=== PATIENT | female | born 1970 | race American Indian/Alaskan Native ===

== ENCOUNTER 2017-03-04 20:54 | Emergency (ER) | payer SELFPAY ==
[2017-03-04 22:25] VITALS: BP 157/107
== END 2017-03-05 04:31 | disposition left against medical advice (07) ==
LOC: ED 20:54
DX: J02.9 Acute pharyngitis, unspecified (principal); Z53.21 Procedure and treatment not carried out due to patient leaving prior to being seen by health care provider
CPT/HCPCS: 87116; 87430